=== PATIENT | female | born 1960 | race African-American/Black ===

== ENCOUNTER 2019-08-29 15:39 | Observation (INO) ==
[2019-08-29] MEDS ORDERED: KETOROLAC 30 MG/1 ML VIAL IV STA (16:18)
[2019-08-29] MEDS ORDERED: methylPREDNISolone SOD SUC 125 MG/2 ML VIAL IV STA (16:18)
[2019-08-29] MEDS ORDERED: ALBUTEROL/IPRATROPIUM 3 ML NEB RESP TX STA (16:18)
[2019-08-29] MEDS ORDERED: AZITHROMYCIN INJ 500 MG in SODIUM CHLORIDE 0.9% 250 ML IV STA (16:18)
[2019-08-29 16:40] LABS: INR 4.3; Partial Thromboplastin Time 40.8 SECS (20.8-36.0)
[2019-08-29 16:43] LABS: PT Patient Result 45.9 SECS (9.6-12.2)
[2019-08-29 16:47] LABS: Albumin 3.9 G/DL (3.4-5.0); Calcium 8.7 MG/DL (8.5-10.1); Osmolality,Calculated 279.4 MOS/KG (273-304); Total Protein 8.2 G/DL (6.4-8.3)
[2019-08-29 16:52] LABS: Basophils # 0.1 10*3/uL (0.0-0.2); Basophils % 0.3 % (0.0-0.8); Eosinophils # 0.1 10*3/uL (0.0-0.87); Eosinophils % 0.4 % (0.00-10.9); Hematocrit 41.1 VOL% (35.7-47.0); Hemoglobin 11.9 GM/DL (12.0-16.0); Immature Granulocytes % 0.5 %; Immature Granulocytes Absolute 0.08 #; Lymphocytes # 3.9 10*3/uL (1.4-4.0); Lymphocytes % 25.3 % (21.3-54.2); Mean Corpuscular Volume 84.9 FL (87-102); Mean Platelet Volume 10.5 FL (9.6-12.0); Monocytes % 6.6 % (1.7-12.7); Neutrophils % 66.9 % (38.7-73.9); Platelet Count 277 T/CUMM (130-400); Red Blood Count 4.84 MC/CUMM (3.8-5.5); Red Cell Distribution Width 14.6 % (9.3-17.3); White Blood Count 15.6 T/CUMM (4-12)
[2019-08-29 16:53] LABS: Troponin I 0.025 NG/ML (0.00-0.045)
[2019-08-29] MEDS ORDERED: FUROSEMIDE 40 MG/4 ML VIAL IV STA (18:37)
[2019-08-29] MEDS ORDERED: ZALEPLON 5 MG CAPSULE PO PRN (18:44)
[2019-08-29] MEDS ORDERED: ACETAMINOPHEN 325 MG TABLET PO PRN (18:44)
[2019-08-29] MEDS ORDERED: guaiFENesin/DM ER 600-30 MG TABLET PO PRN (18:44)
[2019-08-29] MEDS ORDERED: ONDANSETRON 4 MG/2 ML VIAL IV PRN (18:44)
[2019-08-29] MEDS: ALBUTEROL 2.5 MG/3 ML NEB RESP TX SCH (20:38)
[2019-08-29] MEDS: hydrALAZINE 10 MG TABLET PO SCH (21:42)
[2019-08-29] MEDS: METOPROLOL SUCCINATE XL 50 MG TABLET PO SCH (21:43)
[2019-08-30] MEDS: ALBUTEROL 2.5 MG/3 ML NEB RESP TX SCH ×2 (00:47→07:00)
[2019-08-30] MEDS: methylPREDNISolone SOD SUC 40 MG/1 ML VIAL IV SCH ×2 (03:55→10:13)
[2019-08-30 07:06] LABS: INR 3.4
[2019-08-30 07:07] LABS: PT Patient Result 36.5 SECS (9.6-12.2)
[2019-08-30 07:16] LABS: Basophils % 0.1 % (0.0-0.8); Hematocrit 37.5 VOL% (35.7-47.0); Hemoglobin 11.4 GM/DL (12.0-16.0); Immature Granulocytes % 0.5 %; Immature Granulocytes Absolute 0.07 #; Lymphocytes # 1.2 10*3/uL (1.4-4.0); Lymphocytes % 8.8 % (21.3-54.2); Mean Corpuscular HGB Conc 30.4 GM/DL (32-36); Mean Corpuscular Volume 80.8 FL (87-102); Mean Platelet Volume 10.6 FL (9.6-12.0); Monocytes % 1.4 % (1.7-12.7); Neutrophils % 89.2 % (38.7-73.9); Platelet Count 268 T/CUMM (130-400); Red Blood Count 4.64 MC/CUMM (3.8-5.5); Red Cell Distribution Width 14.8 % (9.3-17.3)
[2019-08-30 07:22] LABS: Albumin 3.6 G/DL (3.4-5.0); Bilirubin,Total 0.4 MG/DL (0.2-1.0); Calcium 8.8 MG/DL (8.5-10.1); Osmolality,Calculated 281.5 MOS/KG (273-304); Total Protein 7.8 G/DL (6.4-8.3)
[2019-08-30 07:27] LABS: Apearance,Urine CLEAR (Clear); Bilirubin,Urine Negative (Negative); Blood, Urine Moderate mg/dL (Negative); Glucose,Urine (UA) Negative (Negative); Ketones,Urine Negative (Negative); Mucus,Urine Many /LPF (Occasional); Nitrite,Urine Negative (Negative); Protein,Urine 30 MG/DL; RBC,Urine 3 /HPF (0-4); Squamous Epithelial Cell,Urine Occasional /HPF (0-10); Urine Color Yellow (Yellow); Urine Specific Gravity 1.029 (1.001-1.035); Urine Urobilinogen < 2.0 EU/DL (0.2-1.0); WBC,Urine <1 /HPF (0-6)
[2019-08-30] MEDS: hydrALAZINE 10 MG TABLET PO SCH (08:55)
[2019-08-30] MEDS: METOPROLOL SUCCINATE XL 50 MG TABLET PO SCH (08:55)
[2019-08-30] MEDS ORDERED: PANTOPRAZOLE 40 MG TABLET PO SCH (09:00)
[2019-08-30] MEDS ORDERED: CYPROHEPTADINE 4 MG TABLET PO SCH (09:00)
[2019-08-30] MEDS ORDERED: NICOTINE 21 MG/24 HR PATCH TRANSDERM SCH (09:00)
[2019-08-30] MEDS ORDERED: POTASSIUM CHLORIDE 20 MEQ TABLET PO SCH (09:00)
[2019-08-30] MEDS ORDERED: SIMVASTATIN 40 MG TABLET PO SCH (09:00)
[2019-08-30 12:54] VITALS: BP 176/81
[2019-08-30] MEDS ORDERED: AZITHROMYCIN INJ 500 MG in SODIUM CHLORIDE 0.9% 250 ML IV SCH (18:00)
== END 2019-08-30 13:05 | disposition home or self-care (01) ==
LOC: N.EDINP 15:39 → N.ED 15:39 → N.2W 19:39
PROVIDERS: ADMIT Internal Medicine; ATTEND Internal Medicine